=== PATIENT | female | born 2000 | race African-American/Black ===

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

== ENCOUNTER → 2022-01-27 | Outpatient (CLI) | payer OTHER, MEDICAID, SELFPAY | END | disposition home or self-care (01) | PROVIDERS: Visit Provider Obstetrics & Gynecology | DX: N76.0 Acute vaginitis (principal) ==

== ENCOUNTER → 2022-01-31 | Outpatient (CLI) | payer OTHER, SELFPAY ==
[2022-01-31 12:46] LABS: Erythrocyte Sedimentation Rate 4 mm/hr (0-30)
[2022-01-31 12:48] LABS: Absolute Lymphocyte Count 2.05 X10^3/uL (0.83-4.51); Absolute Neutrophil Count 4.6 X10^3/uL (2.0-7.7); Basophil# 0.04 X10^3/uL; Basophil% 0.6 % (0-1); Eosinophil# 0.03 X10^3/uL; Eosinophils% 0.4 % (0-5); Hematocrit 38.7 % (37-47); Hemoglobin 13.4 g/dL (12.0-15.0); Lymphocyte # 2.05 X10^3/ul (0.83-4.51); Lymphocyte % 28.8 % (19-41); Mean Corp Hgb Conc 34.6 g/dL (32-36); Mean Corpuscular Volume 95.3 fL (81-99); Mean Platelet Vol. 9.2 fl (6.2-12.0); Monocyte# 0.44 X10^3/uL; Monocyte% 6.2 % (0-10); NRBC Flagged by Analyzer 0 % (0-5); Neutrophil # 4.55 X10^3/uL (2.7-7.7); Neutrophil % 63.7 % (47-70); Platelet Count 304 K/mm3 (150-450); RBC Distribution Width CV 11.9 % (11.6-14.6); RBC Distribution Width SD 41.5 fl (35.1-43.9); Red Blood Count 4.06 M/mm3 (4.2-5.4); White Blood Count 7.1 K/mm3 (4.4-11.0)
[2022-01-31 13:21] LABS: ALB/GLOB Ratio 1.2 RATIO (0.9-2.4); AST(SGOT) 12 U/L (15-37); Alanine Aminotransfer ALT/SGPT 14 U/L (13-56); Albumin, Serum 4.1 g/dL (3.2-5.0); Alkaline Phosphatase 54 U/L (45-117); Anion Gap 5 (5-15); BUN 10 mg/dL (7-18); BUN/Creat Ratio 14.7 RATIO (10-20); CRP < 2.90 mg/L (0.0-3.0); Calcium,Total 9.3 mg/dL (8.5-10.1); Chloride 108 mmol/L (98-107); Creatinine, Serum 0.68 mg/dL (0.55-1.02); EST Glomerular Filtration Rate 117 mL/min (>60); Est Glom Filt Rate - Afr Amer 142 mL/min (>60); Globulin 3.5 g/dL (2.2-4.2); Glucose 89 mg/dL (74-106); Potassium 3.8 mmol/L (3.5-5.1); Protein, Total 7.6 g/dL (6.4-8.2); Sodium Level 139 mmol/L (136-145); Thyroid Stim Hormone (TSH) 1.91 uIU/mL (0.358-3.74)
[2022-02-01 12:08] LABS: Anti-Centromere B Ab <0.2 AI (0.0-0.9); Anti-Chromatin <0.2 AI (0.0-0.9); Anti-Jo <0.2 AI (0.0-0.9); Anti-Scleroderma-70 AB <0.2 AI (0.0-0.9); RNP Ab <0.2 AI (0.0-0.9); SJOGREN'S Anti-SS-A test < 0.2 AI (0.0-0.9); SJOGREN'S Anti-SS-B test < 0.2 AI (0.0-0.9); Smith Ab <0.2 AI (0.0-0.9)
[2022-02-01 15:55] LABS: Anti-dsDNA Ab <1 IU/mL (0-9)
[2022-02-01 16:08] LABS: Endomysial Antibody IgA Negative (Negative)
[2022-02-02 10:15] LABS: Immunoglobulin A 88 mg/dL (87-352); t-Transglutaminase IgA <2 U/mL (0-3)
== END | disposition home or self-care (01) ==
PROVIDERS: Visit Provider Nurse Practitioner Adult Health
DX: R10.30 Lower abdominal pain, unspecified (principal); R11.0 Nausea; R12 Heartburn; R19.8 Other specified symptoms and signs involving the digestive system and abdomen; R14.0 Abdominal distension (gaseous)
CPT/HCPCS: 36415; 80053; 82784; 83516; 84443; 85025; 85652; 86140; 86225; 86235; 86255

== ENCOUNTER → 2022-02-09 | Outpatient (CLI) | payer OTHER, SELFPAY ==
--- NOTE | 2022-02-09 18:58 | CT_ITS ---
EXAM: CT ABDOMEN AND PELVIS WITH INTRAVENOUS CONTRAST CLINICAL INDICATION: lower abd pain, constip/diarrhea -- oral and iv TECHNIQUE: Helically acquired images were obtained of the abdomen and pelvis with intravenous contrast. This CT exam was performed using one or more of the following dose reduction techniques: automated exposure control, adjustment of the mA and/or kV according to patient size, and/or use of iterative reconstruction technique. This report was created using [employer] report generation technology. CONTRAST: 100 cc of Isovue-300 IV and oral contrast. RADIATION DOSE: CTDIvol = 13.80 mGy, DLP = 434.10 mGy-cm. COMPARISON: None. FINDINGS: LOWER THORAX: Unremarkable. Lung bases are clear. No cardiomegaly. No significant pericardial effusion. ABDOMEN: LIVER: Unremarkable. Homogeneous. No focal mass. GALLBLADDER AND BILE DUCTS: Unremarkable. No calcified gallstones. No gallbladder distention or wall edema. No intra- or extrahepatic biliary ductal dilation. PANCREAS: Unremarkable. No focal cystic or solid mass. SPLEEN: Unremarkable. Normal size without focal cystic or solid mass. ADRENALS: Unremarkable. No nodules. KIDNEYS AND URETERS: Unremarkable. Normal renal size and position. No hydronephrosis. STOMACH AND BOWEL: Unremarkable. No stomach or bowel distention. No focal inflammatory change. PELVIS: APPENDIX: Normal appendix. BLADDER: Unremarkable. REPRODUCTIVE: At least 2 follicles in the right ovary the largest measuring 1.5 cm. ABDOMEN and PELVIS: INTRAPERITONEAL SPACE: Unremarkable. No ascites or other fluid collection. No free air. BONES/JOINTS: Unremarkable. No suspicious lytic or blastic abnormality. SOFT TISSUES: Unremarkable. No discrete abdominal or pelvic wall hernia. VASCULATURE: Unremarkable. Abdominal aorta is non-dilated. LYMPH NODES: Unremarkable. No enlarged lymph nodes. CT/Abdomen/Pelvis WITH Contrast IMPRESSION: No acute abdominal pelvic abnormality. Electronically Signed: Servando Prado MD at 6:09 EDT ,
[2022-02-14 18:06] LABS: Calprotectin, Stool 27 ug/g (0-120)
== END | disposition home or self-care (01) ==
LOC: CT 18:58
PROVIDERS: PCP Internal Medicine; Visit Provider Nurse Practitioner Adult Health
DX: R10.30 Lower abdominal pain, unspecified (principal); R14.0 Abdominal distension (gaseous); R19.8 Other specified symptoms and signs involving the digestive system and abdomen; R11.0 Nausea; R12 Heartburn; K58.9 Irritable bowel syndrome, unspecified
CPT/HCPCS: 74177; 83630; 83993; Q9967

== ENCOUNTER → 2022-03-10 | Outpatient (CLI) | payer OTHER, SELFPAY | END | disposition home or self-care (01) | PROVIDERS: PCP Internal Medicine; Visit Provider Internal Medicine Infectious Disease | DX: R76.11 Nonspecific reaction to tuberculin skin test without active tuberculosis (principal) | CPT/HCPCS: 36415; 86480 ==

== ENCOUNTER 2022-04-04 11:25 | Emergency (ER) | payer OTHER, SELFPAY ==
[2022-04-04 11:26] VITALS: BP 114/79; PULSE 108; RESP 18; TEMP 36.6; O2SAT 98; BMI 24.5
--- NOTE | 2022-04-04 11:55 | EX.ED.VIS.EY ---
HPI History of Present Illness Chief Complaint: Occup Expose Narrative Narrative: Patient who denies significant past medical history presents with burning sensation of her left upper, outer eye for the last week. She states that she was here at the hospital, at work, and cleaning and endoscope that had come out of surgery. As she was cleaning the scope with water and a pH neutral detergent, a small drop of water splashed into her left eye. She denies any vision loss. She states she went to [employer] and had flushed her eye out with water. Since then, she has had burning sensation of her left eye in the upper/outer quadrant of her left eye. She denies any discharge. She does not wear any corrective lenses. She presents for evaluation of this burning sensation that she is had for the last week. [facility] Medical History Anxiety Constipation Depression Diarrhea Fatigue Pelvic pain Home Medications buspirone 10 mg tablet 10 mg PO BID #60 tabs 01/31/22 [Rx Last Taken Unknown] etonogestrel 68 mg subdermal implant (Nexplanon) 1 implant subdermal ONCE 01/31/22 [History Last Taken Unknown] Allergy/AdvReac Type Severity Reaction Status Date / Time No Known Allergies Allergy Verified 04/04/22 11:26 Social History Smoking Status: Never smoker alcohol intake: never ROS ROS ED ROS Narrative Constitutional: No fever, no chills. HEENT: No sore throat. No neck pain. No loss of vision. No rhinorrhea. Burning sensation left upper, outer quadrant left eye. Cardiovascular: No chest pain. No palpitations. No pedal edema. Respiratory: No cough, no shortness of breath. Abdominal: No abdominal pain. No nausea. No vomiting. Genitourinary: No dysuria. No hematuria. Musculoskeletal: No myalgias. No arthralgias. Neurologic: No headaches. No dizziness. No lightheadedness. Skin: No rash. No change in color. Psychiatric: No depression. No anxiety. EXAM Physical Exam Narrative Exam Narrative: Afebrile. Vital signs noted. HEENT: Normocephalic. Atraumatic. PERRL, EOMI. Neck soft and supple. No point tenderness or step off. No conjunctival injection. No foreign body noted under lid after eversion. Fluorescein examination showed no evidence of corneal abrasion or dye uptake. Negative Trisha sign. Cardiovascular: Regular rate and rhythm. No murmurs, rubs, or gallops appreciated. Respiratory: No tachypnea. Lungs clear to auscultation bilaterally. Gastrointestinal: Abdomen soft, nontender, with normoactive bowel sounds. No rebound or guarding. Neurological: Awake. Alert. Nonfocal, nonlateralizing. Skin: No rash. Normal color. No pallor. Musculoskeletal: No pedal edema. Full range of motion extremities. Const Vital Signs: 04/04/22 11:26 Temperature 97.8 F Temperature Source Temporal Pulse Rate 108 H Respiratory Rate 18 Blood Pressure 114/79 Blood Pressure Mean 90 Pulse Ox 98 Oxygen Delivery Method Room Air MDM MDM MDM Narrative Medical decision making narrative: The patient is a week out from her injury. An employee health told her to flush out her eye. I do not feel that blood work is indicated for exposure, and additionally there was no blood drawn from the source patient. I do feel that she may have irritated her left eye from flushing it out with water. As there is no dye uptake, I feel she can be discharged to take [id number] medications and follow-up with ophthalmology as needed. Return instructions to the emergency department were reviewed. Disposition is discharged home in stable condition. Discharge Plan Triage Chief Complaint: Occup Expose ED Provider: Prasanth Hughes Dx/Rx/DC Orders Clinical Impression: Burning sensation of eye, Episcleritis of left eye Instructions: ED Eye Exposure, Chemical Prescriptions: No Action Nexplanon 68 mg implant 1 implant subdermal ONCE Rx Instructions: as a single dose buspirone 10 mg tablet 10 mg PO BID Qty: 60 1RF Primary Care Provider: Sandra Quinonez Referrals: Griffin Barnhart MD [Med Staff - Active Staff] - As soon as possible Sandra Quinonez MD [Primary Care Provider] - Disposition Disposition: Home, Self Care
--- NOTE | 2022-04-04 12:03 | NURSING ---
TUBED [employer] TO EMPLOY[employer],
[2022-04-04] MEDS: Fluorescein 1 MG STRIP 1 STRIP LEFT EYE (12:05)
[2022-04-04] MEDS: Tetracaine 0.5% Ophthalmic Bottle 1 DRP LEFT EYE (12:05)
== END 2022-04-04 12:06 | disposition home or self-care (01) ==
PROVIDERS: Emergency Provider Emergency Medicine; PCP Internal Medicine; Visit Provider Emergency Medicine
DX: H15.102 Unspecified episcleritis, left eye (principal)
CPT/HCPCS: 99282